=== PATIENT | female | born 1980 | race Two or more races ===

== ENCOUNTER → 2018-01-07 | Outpatient (CLI) | payer OTHER ==
[2018-01-07 18:44] LABS: EPITHELIALS (WET MOUNT) 3+ EPITHELIALS SEEN; T.VAGINALIS (WET MOUNT) NO TRICHOMONAS SEEN; WBCS (WET MOUNT) RARE WBCS SEEN; YEAST (WET MOUNT) NO YEAST SEEN
[2018-01-07 20:05] LABS: CHLAM PCR NOT DETECTED (NOT DETECT); GON PCR NOT DETECTED (NOT DETECT)
== END ==
LOC: LAB 18:30
PROVIDERS: ATTEND Nurse Practitioner Family
DX: N76.0 Acute vaginitis (principal)
CPT/HCPCS: 87210; 87491; 87591